=== PATIENT | female | born 1970 | race Caucasian/White ===

== ENCOUNTER → 2022-04-02 | Outpatient (CLI) | payer BC ==
--- NOTE | 2022-04-03 15:57 | Diagnostic Imaging Report ---
INDICATION: Routine screening. Comparison is made prior mammogram 02/27/2021 and 01/22/2020. 2-D and 3-D bilateral screening mammography was performed with CAD. Both breasts are heterogeneously dense, limiting the sensitivity of mammography. The parenchymal pattern is stable. No mass or malignant-appearing microcalcifications are seen. There are benign calcification bilaterally. The axillae are unremarkable. IMPRESSION: No mammographic features suspicious for malignancy are identified. ACR BI-RADS Category 2: Benign findings. Result letter will be mailed to the patient. Note: At least 10% of breast cancer is not imaged by mammography. BI-RADS Category 2 Dictated by: Dictated on workstation # [id number]
== END ==
LOC: RAD 15:16
DX: Z12.31 Encounter for screening mammogram for malignant neoplasm of breast (principal); Z91.89 Other specified personal risk factors, not elsewhere classified
CPT/HCPCS: 77063; 77067

== ENCOUNTER → 2022-10-05 | Outpatient (CLI) | payer BC ==
[~2022-10-05] MED LIST: GADOBUTROL 15 MMOL/15 ML (GADAVIST) VIAL IV ONE
--- NOTE | 2022-10-05 09:49 | Diagnostic Imaging Report ---
TECHNIQUE: Utilizing 1.5 Claritza GE magnet, patient was placed in a prone position with 8-channel dual breast coil utilized. Axial STIR precontrasted image and axial T1 fat-sat postcontrast high-resolution images obtained. Sagittal T2-weighted images precontrast, bilaterally, as well. Sagittal vibrant temporal images were obtained pre and post contrast with bolus technique utilized of gadolinium. Images are postcontrast immediately and subsequently for 7 minutes. Pre and post contrasted images are then evaluated with [place] for evaluation of possible angiogenesis. INDICATION: High risk for breast cancer. COMPARISONS: 07/19/2021 and 04/02/2022. FINDINGS: The bilateral breasts demonstrate moderate background glandularity. The bilateral breasts demonstrate minimal background enhancement. No significant axillary or internal mammary adenopathy. The visualized portions of the chest wall and upper abdomen are grossly unremarkable. A few scattered foci of enhancement are identified within the bilateral breasts. No suspicious mass or non-mass enhancement within either breast. IMPRESSION: Stable-appearing examination without evidence of malignancy. BI-RADS Category 1: Negative FOLLOW-UP: Given patient's high risk status, continued high risk surveillance is recommended with annual screening mammography and breast MRIs alternating every 6 months. Therefore, the patient will be due for bilateral screening mammography in April 2023. Dictated by: Dictated on workstation # [id number]
== END ==
LOC: RAD 07:43
PROVIDERS: ATTEND Obstetrics & Gynecology
DX: Z12.31 Encounter for screening mammogram for malignant neoplasm of breast (principal); Z91.89 Other specified personal risk factors, not elsewhere classified
CPT/HCPCS: 77049

== ENCOUNTER → 2023-04-03 | Outpatient (CLI) | payer BC ==
--- NOTE | 2023-04-03 11:37 | Diagnostic Imaging Report ---
INDICATION: Routine screening. COMPARISON: 04/02/2022. TECHNIQUE: 2D and 3D bilateral screening mammography was performed with CAD. FINDINGS: Both breasts are heterogeneously dense, limiting the sensitivity of mammography. The parenchymal pattern is stable. No mass or malignant-appearing microcalcifications are identified. There are occasional benign calcifications. The axillae are unremarkable. IMPRESSION: No mammographic features suspicious for malignancy are identified. ACR BI-RADS Category 1: Negative. Result letter will be mailed to the patient. Note: At least 10% of breast cancer is not imaged by mammography. Dictated by: Dictated on workstation # [id number]
== END ==
LOC: RAD 09:45
PROVIDERS: ATTEND Obstetrics & Gynecology
DX: Z12.31 Encounter for screening mammogram for malignant neoplasm of breast (principal)
CPT/HCPCS: 77063; 77067